=== PATIENT | male | born 1935 | race African-American/Black ===

== ENCOUNTER 2016-08-09 09:36 | Inpatient (IN) | payer MEDICARE ==
[~2016-08-09] VITALS: Ht 180.3 cm; Wt 70.4 kg
[2016-08-09] MEDS ORDERED: ASPIRIN 81MG TABLET PO ONE (11:00)
[2016-08-09 11:23] LABS: BASOPHILS % 0.9 % (0.0-2.0); EOSINOPHILS % 5.9 % (0.0-5.0); HEMATOCRIT. 36.6 % (42.0-52.0); HEMOGLOBIN. 12.2 g/dL (14.0-18.0); MEAN CORPUSCULAR HEMOGLOBIN 29.3 pg (28.0-32.0); MEAN CORPUSCULAR HGB CONC 33.4 g/dL (31.0-37.0); MEAN CORPUSCULAR VOLUME 87.6 fL (80.0-94.0); MEAN PLATELET VOLUME 9.3 fl (7.4-10.4); MONOCYTES % 14.9 % (2.0-8.0); NEUTROPHILS % 56.3 % (40.0-76.0); PLATELET 120 x1000/uL (130-400); RED BLOOD CELL COUNT 4.18 mill/uL (4.7-6.1); RED CELL DISTRIBUTION WIDTH 14.9 % (11.6-14.6); WHITE BLOOD COUNT 3.5 x1000/uL (4.5-11.0)
[2016-08-09 11:25] LABS: BG BASE EXCESS 4.2 mmol/L (-2.0-2.0); BG CARBOXYHEMOGLOBIN 0.5 % (0.5-1.5); BG DEOXYHEMOGLOBIN 2.7 % (0.0-5.0); BG FRACTION INSPIRED OXYGEN 21; BG HCO3 ACT 28.5 mmol/L (22.0-26.0); BG METHEMOGLOBIN 0.4 % (0.0-1.5); BG OXYGEN SATURATION 97.3 % (92.0-98.5); BG OXYHEMOGLOBIN 96.4 % (94.0-97.0); BG PCO2 41.4 mmHg (35.0-45.0); BG PH 7.456 (7.350-7.450); BG PO2 91.2 mmHg (75.0-100.0); BG SAMPLE SITE RIGHT BRACHIAL; BG TOTAL HEMOGLOBIN 12.5 g/dL (12.0-18.0); BG VENT MODE ROOM AIR
[2016-08-09 11:31] LABS: D-DIMER 1.97 mg/L FEU (<0.50); INR 1.2; PROTHROMBIN TIME 12.2 sec
[2016-08-09 11:38] LABS: ALANINE AMINOTRANSFERASE 15 IU/L (13-61); ALBUMIN 2.7 g/dL (3.4-5.0); ANION GAP 8; CALCIUM 8.3 mg/dL (8.5-10.1); CARBON DIOXIDE 32 mEq/L (21-32); CHLORIDE 100 mEq/L (98-107); ETHANOL BLOOD < 10 mg/dL; INDEX HEMOLYSI 1 (1-3); INDEX ICTERIC 1 (1-4); INDEX LIPEMIC 1 (1-3); NT PRO B-TYPE NATRIURETIC PEP 192 pg/mL (5-125); TROPONIN I < 0.02 ng/mL (0.00-0.04); UREA NITROGEN BLOOD 12 mg/dL (7-21); eGFR > 60 mL/min (>60)
[2016-08-09 13:54] LABS: *AMPHETAMINES SCREEN URINE NEGATIVE (NEGATIVE); *BARBITURATES SCREEN URINE NEGATIVE (NEGATIVE); *BENZODIAZEPINES SCREEN URINE NEGATIVE (NEGATIVE); *COCAINE SCREEN URINE NEGATIVE (NEGATIVE); CANNABINOID URINE SCREEN NEGATIVE (NEGATIVE); ECSTASY MDMA SCREEN URINE NEGATIVE (NEGATIVE); METHADONE URINE SCREEN NEGATIVE (NEGATIVE); OPIATES URINE SCREEN NEGATIVE (NEGATIVE); PHENCYCLIDINE URINE SCREEN NEGATIVE (NEGATIVE)
[2016-08-09] MEDS ORDERED: DIPHENHYDRAMINE 50MG/ML VIAL IV PRN (16:30)
[2016-08-09] MEDS ORDERED: NITROGLYCERIN 0.4MG TABLET SL SL PRN (16:30)
[2016-08-09] MEDS ORDERED: IPRATROPIUM/ALBUTEROL 0.5-3(2.5)MG/3ML NEB INH PRN (16:30)
[2016-08-09] MEDS ORDERED: TRAMADOL 50MG TABLET PO PRN (16:30)
[2016-08-09] MEDS ORDERED: CLONIDINE 0.1MG TABLET PO PRN (16:30)
[2016-08-09] MEDS ORDERED: ACETAMINOPHEN 325MG TABLET PO PRN (16:30)
[2016-08-09] MEDS ORDERED: KETOROLAC 15MG/ML VIAL IV PRN (16:30)
[2016-08-09] MEDS ORDERED: ONDANSETRON HCL 4MG/2ML VIAL IV PRN (16:30)
[2016-08-09] MEDS ORDERED: DOCUSATE SODIUM 100MG CAPSULE PO PRN (16:30)
[2016-08-09] MEDS ORDERED: MAGNESIUM/ALUMINUM HYDROXIDE/SIMETHICONE 30ML UDC PO PRN (16:30)
[2016-08-09] MEDS ORDERED: GUAIFENESIN 200MG/10ML SUGAR FREE UDC PO PRN (16:30)
[2016-08-09 18:55] LABS: INDEX HEMOLYSI 1 (1-3); INDEX ICTERIC 1 (1-4); INDEX LIPEMIC 1 (1-3); IRON 70 ug/dL (50-175); TOTAL IRON BINDING CAPACITY 272 ug/dL (250-450)
[2016-08-09 19:15] LABS: INDEX HEMOLYSI 1 (1-3)
[2016-08-09 19:30] LABS: VITAMIN B12 SERUM 400 pg/mL (211-911)
[2016-08-09 19:49] LABS: FOLIC ACID (FOLATE) SERUM > 20.00 ng/mL (>5.38)
[2016-08-09] MEDS ORDERED: ZOLPIDEM TARTRATE 5MG TABLET PO PRN (20:00)
[2016-08-09] MEDS ORDERED: NA PHOS,M-B/NA PHOS,DI-BA ENEMA 118ML PR PRN (20:00)
[2016-08-09 23:17] LABS: CREATINE KINASE 176 IU/L (39-308); INDEX HEMOLYSI 1 (1-3); TROPONIN I < 0.02 ng/mL (0.00-0.04)
[2016-08-10] VITALS (9 sets, daily range): BP systolic 121–174; BP diastolic 67–85
[2016-08-10] MEDS ORDERED: METO50TA5 PO (02:22)
[2016-08-10] MEDS ORDERED: ASPI-1035 PO (02:22)
[2016-08-10] MEDS: METOPROLOL TARTRATE 25MG TABLET PO SCH ×2 (02:54→08:19)
[2016-08-10 08:53] LABS: CREATINE KINASE 176 IU/L (39-308); CREATINE KINASE MB FRACTION 2.2 ng/mL (0.5-3.6); INDEX HEMOLYSI 1 (1-3); TROPONIN I < 0.02 ng/mL (0.00-0.04)
[2016-08-10] MEDS ORDERED: ASPIRIN 325MG EC TABLET PO SCH (09:00)
[2016-08-10] MEDS ORDERED: PANTOPRAZOLE SODIUM 40 MG/VIAL IV SCH (09:00)
[2016-08-10] MEDS ORDERED: ENOXAPARIN 40MG/0.4ML SYR SUBCUT SCH (09:00)
== END 2016-08-10 12:45 | disposition home or self-care (01) | DRG 308 ==
LOC: ER 09:48 → 5EST 15:38
PROVIDERS: ADMIT Internal Medicine; ATTEND Internal Medicine
DX: R00.2 Palpitations (principal); E43 Unspecified severe protein-calorie malnutrition; D63.8 Anemia in other chronic diseases classified elsewhere; I10 Essential (primary) hypertension; Z79.82 Long term (current) use of aspirin; Z86.73 Personal history of transient ischemic attack (TIA), and cerebral infarction without residual deficits
CPT/HCPCS: 36415; 36600; 71010; 80053; 80061; 80305; 82375; 82550; 82553; 82607; 82746; 82805; 83036; 83540; 83550; 83880; 84132; 84484; 85025; 85379; 85610; 93005; 93970; 99285; C9113; G0482; J1650

== ENCOUNTER 2016-11-14 14:05 | Inpatient (IN) | payer MEDICARE, OTHER ==
[~2016-11-14] VITALS: Ht 175.3 cm; Wt 72.6 kg
[~2016-11-14 14:05] MED LIST: ASPI-1159 PO
[2016-11-14 14:47] LABS: BASOPHILS % 0.7 % (0.0-2.0); EOSINOPHILS % 0.9 % (0.0-5.0); HEMATOCRIT. 33.8 % (42.0-52.0); HEMOGLOBIN. 11.3 g/dL (14.0-18.0); LYMPHOCYTES % 12.1 % (20.0-50.0); MEAN CORPUSCULAR HEMOGLOBIN 29.1 pg (28.0-32.0); MEAN CORPUSCULAR VOLUME 86.9 fL (80.0-94.0); MEAN PLATELET VOLUME 9.3 fl (7.4-10.4); MONOCYTES % 11.9 % (2.0-8.0); NEUTROPHILS % 74.4 % (40.0-76.0); PLATELET 111 x1000/uL (130-400); RED BLOOD CELL COUNT 3.89 mill/uL (4.7-6.1); RED CELL DISTRIBUTION WIDTH 14.9 % (11.6-14.6)
[2016-11-14 14:53] LABS: INR 1.2; PARTIAL THROMBOPLASTIN TIME 23.3 sec (24.0-34.0); PROTHROMBIN TIME 12.6 sec
[2016-11-14 14:57] LABS: CARBON DIOXIDE 30 mEq/L (21-32); CHLORIDE 98 mEq/L (98-107)
[2016-11-14 15:01] LABS: TROPONIN I < 0.02 ng/mL (0.00-0.04)
[2016-11-15] VITALS: BP 155/86
[2016-11-15] MEDS ORDERED: LOSA25TA12 PO (00:30)
[2016-11-15] MEDS ORDERED: NITR0.4T3 SL (00:30)
[2016-11-15] MEDS ORDERED: HYDROMORPHONE HCL/PF 2MG/ML CPJ IV PRN (00:45)
[2016-11-15] MEDS ORDERED: NITROGLYCERIN 0.4MG TABLET SL SL PRN (00:45)
[2016-11-15] MEDS ORDERED: ACETAMINOPHEN 325MG TABLET PO PRN (00:45)
[2016-11-15] MEDS ORDERED: ONDANSETRON HCL 4MG/2ML VIAL IV PRN (00:45)
[2016-11-15] MEDS ORDERED: MECLIZINE 25MG TABLET PO PRN (00:45)
[2016-11-15 04:00] VITALS: BP 148/84
[2016-11-15] MEDS: OMEPRAZOLE 20MG CAPSULE EXTENDED RELEASE PO SCH (06:55)
[2016-11-15 07:55] LABS: BASOPHILS % 0.5 % (0.0-2.0); EOSINOPHILS % 4.6 % (0.0-5.0); HEMATOCRIT. 38.4 % (42.0-52.0); LYMPHOCYTES % 32.8 % (20.0-50.0); MEAN CORPUSCULAR HEMOGLOBIN 29.3 pg (28.0-32.0); MEAN CORPUSCULAR VOLUME 86.7 fL (80.0-94.0); MEAN PLATELET VOLUME 9.8 fl (7.4-10.4); MONOCYTES % 14.2 % (2.0-8.0); NEUTROPHILS % 47.9 % (40.0-76.0); PLATELET 119 x1000/uL (130-400); RED BLOOD CELL COUNT 4.43 mill/uL (4.7-6.1); RED CELL DISTRIBUTION WIDTH 15.1 % (11.6-14.6)
[2016-11-15 08:00] VITALS: BP 180/86
[2016-11-15 08:03] LABS: CARBON DIOXIDE 30 mEq/L (21-32); CHLORIDE 100 mEq/L (98-107); TROPONIN I < 0.02 ng/mL (0.00-0.04)
[2016-11-15] MEDS ORDERED: DOCU-138 PO (08:04)
[2016-11-15] MEDS: LOSARTAN POTASSIUM 25 MG TABLET PO SCH (08:17)
[2016-11-15] MEDS: ASPIRIN 81MG EC TABLET PO SCH (08:17)
[2016-11-15] MEDS: ENOXAPARIN 40MG/0.4ML SYR SUBCUT SCH (08:18)
[2016-11-15] MEDS ORDERED: FUROSEMIDE 40MG/4ML VIAL IVP SCH (09:00)
[2016-11-15] MEDS: SODIUM CHLORIDE 0.45% 1,000 ML IV SCH ×2 (09:38→21:31)
[2016-11-15] MEDS ORDERED: REGADENOSON 0.4 MG/5 ML IV SCH (09:45)
[2016-11-15] MEDS ORDERED: REGADENOSON 0.4 MG/5 ML IV ONE (11:34)
[2016-11-15 12:00] VITALS: BP 151/88
[2016-11-15 16:00] VITALS: BP 150/80
[2016-11-15 20:00] VITALS: BP 167/98
[2016-11-15] MEDS: DOCUSATE SODIUM 250MG CAPSULE PO SCH (21:31)
[2016-11-15] MEDS: CLONIDINE 0.1MG TABLET PO PRN (22:39)
[2016-11-16] VITALS: BP 150/97
[2016-11-16 04:00] VITALS: BP 113/73
[2016-11-16] MEDS: OMEPRAZOLE 20MG CAPSULE EXTENDED RELEASE PO SCH (07:02)
[2016-11-16 08:00] VITALS: BP 145/86
[2016-11-16] MEDS: ASPIRIN 81MG EC TABLET PO SCH (09:16)
[2016-11-16] MEDS: LOSARTAN POTASSIUM 25 MG TABLET PO SCH (09:16)
[2016-11-16] MEDS: ENOXAPARIN 40MG/0.4ML SYR SUBCUT SCH (09:16)
[2016-11-16] MEDS: SODIUM CHLORIDE 0.45% 1,000 ML IV SCH (11:21)
[2016-11-16 12:00] VITALS: BP 116/75
[2016-11-16 16:00] VITALS: BP 118/79
[2016-11-16 20:00] VITALS: BP 159/98
[2016-11-16] MEDS: DOCUSATE SODIUM 250MG CAPSULE PO SCH (20:39)
[2016-11-16] MEDS: CLONIDINE 0.1MG TABLET PO PRN (23:49)
[2016-11-17] VITALS (7 sets, daily range): BP systolic 125–164; BP diastolic 81–96
[2016-11-17] MEDS: SODIUM CHLORIDE 0.45% 1,000 ML IV SCH ×2 (04:47→15:46)
[2016-11-17] MEDS ORDERED: FAMOTIDINE 20MG TABLET PO SCH (09:00)
[2016-11-17] MEDS: LOSARTAN POTASSIUM 25 MG TABLET PO SCH (09:06)
[2016-11-17] MEDS: ASPIRIN 81MG EC TABLET PO SCH (09:06)
[2016-11-17] MEDS: ENOXAPARIN 40MG/0.4ML SYR SUBCUT SCH (09:07)
== END 2016-11-17 16:50 | disposition home or self-care (01) | DRG 205 ==
LOC: ER 14:37 → 5WST 21:30 → EDBEDREQ 21:35 → EDBEDREQTM 21:35 → ENRESERV 21:44
PROVIDERS: ADMIT Internal Medicine; ATTEND Internal Medicine
DX: M94.0 Chondrocostal junction syndrome [Tietze] (principal); E43 Unspecified severe protein-calorie malnutrition; E87.1 Hypo-osmolality and hyponatremia; K21.9 Gastro-esophageal reflux disease without esophagitis; D64.9 Anemia, unspecified; E78.5 Hyperlipidemia, unspecified; E83.51 Hypocalcemia; I11.0 Hypertensive heart disease with heart failure; I25.10 Atherosclerotic heart disease of native coronary artery without angina pectoris; I50.9 Heart failure, unspecified; R73.03 Prediabetes; Z79.82 Long term (current) use of aspirin; Z68.23 Body mass index [BMI] 23.0-23.9, adult; Z88.8 Allergy status to other drugs, medicaments and biological substances; Z88.1 Allergy status to other antibiotic agents; Z79.899 Other long term (current) drug therapy; Z82.3 Family history of stroke
CPT/HCPCS: 36415; 71010; 78452; 80048; 80053; 83036; 83880; 84484; 85025; 85610; 85651; 85730; 93005; 93017; 93306; 93970; 99285; A9500; J1650; J1940; J2785; J8597

== ENCOUNTER 2017-08-09 09:43 | Inpatient (IN) | payer MEDICARE, OTHER ==
[~2017-08-09] VITALS: Ht 175.3 cm; Wt 70.3 kg
[~2017-08-09 09:43] MED LIST changes: +DOCU-138 PO; +LOSA25TA12 PO; +NITR0.4T49 SL
[2017-08-09] MEDS ORDERED: SODIUM CHLORIDE 0.9% 500 ML IV ONE (09:50)
[2017-08-09 10:32] LABS: HEMATOCRIT. 36.8 % (42.0-52.0); HEMOGLOBIN. 12.5 g/dL (14.0-18.0); MEAN CORPUSCULAR HEMOGLOBIN 29.4 pg (28.0-32.0); MEAN PLATELET VOLUME 8.6 fl (7.4-10.4); PLATELET 137 x1000/uL (130-400); RED BLOOD CELL COUNT 4.23 mill/uL (4.7-6.1); RED CELL DISTRIBUTION WIDTH 14.5 % (11.6-14.6)
[2017-08-09 10:40] LABS: INR 1.1; PARTIAL THROMBOPLASTIN TIME 23.6 sec (23.4-31.0); PROTHROMBIN TIME 11.9 sec (9.4-11.6)
[2017-08-09 10:43] LABS: CHLORIDE 83 mEq/L (98-107)
[2017-08-09] MEDS ORDERED: ASPIRIN 325MG EC TABLET PO ONE (10:45)
[2017-08-09 10:51] LABS: ETHANOL BLOOD < 10 mg/dL; LDL CHOLESTEROL 67 mg/dL (5-100)
[2017-08-09 10:55] LABS: AMMONIA < 25 uMol/L (<32); PLATELET ESTIMATE NORMAL
[2017-08-09 11:00] LABS: CREATINE KINASE 4518 IU/L (39-308)
[2017-08-09] MEDS ORDERED: FUROSEMIDE 40MG/4ML VIAL IVP ONE (11:15)
[2017-08-09 12:10] LABS: CLARITY URINE CLEAR (CLEAR); COLOR URINE YELLOW (YELLOW); KETONES URINE NEGATIVE (NEGATIVE); LEUKOCYTE ESTERASE URINE NEGATIVE (NEGATIVE); NITRITE URINE NEGATIVE (NEGATIVE); OCCULT BLOOD URINE 3+ (NEGATIVE); PH URINE 5.5 (4.5-8.0); PROTEIN URINE 2+ (NEGATIVE); SPECIFIC GRAVITY URINE 1.017 (1.005-1.030); UROBILINOGEN URINE 0.2 E.U./dL (0.2-1.0)
[2017-08-09 12:46] LABS: *AMPHETAMINES SCREEN URINE NEGATIVE (NEGATIVE); *BARBITURATES SCREEN URINE NEGATIVE (NEGATIVE); *BENZODIAZEPINES SCREEN URINE NEGATIVE (NEGATIVE); *COCAINE SCREEN URINE NEGATIVE (NEGATIVE); CANNABINOID URINE SCREEN NEGATIVE (NEGATIVE); METHADONE URINE SCREEN NEGATIVE (NEGATIVE); OPIATES URINE SCREEN NEGATIVE (NEGATIVE); PHENCYCLIDINE URINE SCREEN NEGATIVE (NEGATIVE)
[2017-08-09] MEDS ORDERED: ACETAMINOPHEN 325MG TABLET PO PRN (16:30)
[2017-08-09] MEDS ORDERED: IPRATROPIUM/ALBUTEROL 0.5-3(2.5)MG/3ML NEB INH PRN (16:30)
[2017-08-09] MEDS ORDERED: MAGNESIUM/ALUMINUM HYDROXIDE/SIMETHICONE 30ML UDC PO PRN (16:30)
[2017-08-09] MEDS ORDERED: GUAIFENESIN 200MG/10ML SUGAR FREE UDC PO PRN (16:30)
[2017-08-09] MEDS ORDERED: ONDANSETRON HCL 4MG/2ML VIAL IV PRN (16:30)
[2017-08-09] MEDS ORDERED: ACETAMINOPHEN 650MG/20.3ML UDC GT PRN (16:30)
[2017-08-09] MEDS ORDERED: DIPHENHYDRAMINE 50MG/ML VIAL IV PRN (16:30)
[2017-08-09] MEDS ORDERED: ACETAMINOPHEN 650MG SUPP PR PRN (16:30)
[2017-08-09] MEDS ORDERED: CLONIDINE 0.1MG TABLET PO PRN (16:30)
[2017-08-09] MEDS ORDERED: HYDROCODONE/ACETAMINOPHEN 5/325MG TABLET PO PRN (16:30)
[2017-08-09] MEDS ORDERED: MORPHINE SULFATE 4 MG/ML CPJ (NOT FOR IM USE) IV PRN (17:00)
[2017-08-09 17:26] LABS: HEMATOCRIT. 33.9 % (42.0-52.0); HEMOGLOBIN. 11.6 g/dL (14.0-18.0); MEAN CORPUSCULAR HEMOGLOBIN 29.6 pg (28.0-32.0); MEAN CORPUSCULAR VOLUME 86.8 fL (80.0-94.0); PLATELET 126 x1000/uL (130-400); RED CELL DISTRIBUTION WIDTH 14.4 % (11.6-14.6)
[2017-08-09 17:28] LABS: CHLORIDE 87 mEq/L (98-107)
[2017-08-09 18:24] LABS: PLATELET ESTIMATE SLIGHTLY DECREASED
[2017-08-09 18:51] LABS: T4 FREE 1.32 ng/dL (0.76-1.46)
[2017-08-09] MEDS ORDERED: NA PHOS,M-B/NA PHOS,DI-BA ENEMA 118ML PR PRN (21:00)
[2017-08-09 22:00] VITALS: BP 159/81
[2017-08-09 23:00] VITALS: BP 159/81
[2017-08-09] MEDS ORDERED: SODIUM CHLORIDE 0.9% 1,000 ML IV NR (23:00)
[2017-08-09] MEDS: SODIUM CHLORIDE 0.9% INJ 3ML FLUSH IVF SCH (23:10)
[2017-08-09 23:54] LABS: CHLORIDE 88 mEq/L (98-107)
[2017-08-10] VITALS (8 sets, daily range): BP systolic 103–142; BP diastolic 62–75
[2017-08-10] MEDS ORDERED: CEFTRIAXONE 1 G PREMIX 50 ML IV SCH
[2017-08-10] MEDS: SODIUM CHLORIDE 0.9% INJ 3ML FLUSH IVF SCH ×2 (06:00→15:27)
[2017-08-10 08:06] LABS: HEMATOCRIT. 33.2 % (42.0-52.0); HEMOGLOBIN. 11.3 g/dL (14.0-18.0); MEAN CORPUSCULAR HEMOGLOBIN 29.4 pg (28.0-32.0); MEAN CORPUSCULAR VOLUME 86.4 fL (80.0-94.0); MEAN PLATELET VOLUME 9.4 fl (7.4-10.4); PLATELET 116 x1000/uL (130-400); RED BLOOD CELL COUNT 3.85 mill/uL (4.7-6.1); RED CELL DISTRIBUTION WIDTH 14.4 % (11.6-14.6)
[2017-08-10 08:25] LABS: CHLORIDE 91 mEq/L (98-107)
[2017-08-10 08:47] LABS: HDL CHOLESTEROL 74 mg/dL (40-59); LDL CHOLESTEROL 50 mg/dL (5-100); PHOSPHORUS 2.5 mg/dL (2.5-4.9)
[2017-08-10 08:52] LABS: TROPONIN I 0.77 ng/mL (0.00-0.04)
[2017-08-10] MEDS: ENOXAPARIN 40MG/0.4ML SYR SUBCUT SCH (09:46)
[2017-08-10 12:07] LABS: PLATELET ESTIMATE DECREASED
[2017-08-10] MEDS ORDERED: ASPIRIN 81MG EC TABLET PO NR (14:30)
[2017-08-10] MEDS ORDERED: CLOPIDOGREL 75MG TABLET PO NR (14:30)
[2017-08-10] MEDS: CEFTRIAXONE 1 G PREMIX 50 ML IV SCH (21:30)
[2017-08-10 23:51] LABS: CLARITY URINE CLEAR (CLEAR); COLOR URINE YELLOW (YELLOW); KETONES URINE TRACE (NEGATIVE); LEUKOCYTE ESTERASE URINE NEGATIVE (NEGATIVE); NITRITE URINE NEGATIVE (NEGATIVE); OCCULT BLOOD URINE 2+ (NEGATIVE); PROTEIN URINE 1+ (NEGATIVE); SPECIFIC GRAVITY URINE 1.021 (1.005-1.030); UROBILINOGEN URINE 0.2 E.U./dL (0.2-1.0)
[2017-08-11] VITALS (12 sets, daily range): BP systolic 100–139; BP diastolic 53–76
[2017-08-11 06:36] LABS: HEMATOCRIT. 29.5 % (42.0-52.0); HEMOGLOBIN. 10.2 g/dL (14.0-18.0); MEAN CORPUSCULAR HEMOGLOBIN 30.4 pg (28.0-32.0); MEAN CORPUSCULAR VOLUME 87.4 fL (80.0-94.0); MEAN PLATELET VOLUME 9.5 fl (7.4-10.4); PLATELET 101 x1000/uL (130-400); RED BLOOD CELL COUNT 3.37 mill/uL (4.7-6.1)
[2017-08-11 06:55] LABS: CHLORIDE 96 mEq/L (98-107)
[2017-08-11 07:10] LABS: TROPONIN I 0.33 ng/mL (0.00-0.04)
[2017-08-11 07:25] LABS: CREATINE KINASE 4634 IU/L (39-308)
[2017-08-11] MEDS: ASPIRIN 81MG EC TABLET PO SCH (10:04)
[2017-08-11] MEDS: CLOPIDOGREL 75MG TABLET PO SCH (10:04)
[2017-08-11] MEDS: ENOXAPARIN 40MG/0.4ML SYR SUBCUT SCH (10:05)
[2017-08-11 18:01] LABS: PLATELET ESTIMATE DECREASED
[2017-08-11] MEDS: CEFTRIAXONE 1 G PREMIX 50 ML IV SCH (21:11)
[2017-08-11] MEDS: SODIUM CHLORIDE 0.9% INJ 3ML FLUSH IVF SCH (21:15)
[2017-08-12] VITALS (12 sets, daily range): BP systolic 97–142; BP diastolic 59–76
[2017-08-12] MEDS: IPRATROPIUM/ALBUTEROL 0.5-3(2.5)MG/3ML NEB INH SCH ×4 (01:40→20:38)
[2017-08-12] MEDS: SODIUM CHLORIDE 0.9% INJ 3ML FLUSH IVF SCH ×3 (07:10→21:38)
[2017-08-12 07:17] LABS: BASOPHILS % 0.4 % (0.0-2.0); EOSINOPHILS % 2.2 % (0.0-5.0); HEMATOCRIT. 30.6 % (42.0-52.0); HEMOGLOBIN. 10.4 g/dL (14.0-18.0); LYMPHOCYTES % 11.7 % (20.0-50.0); MEAN CORPUSCULAR HEMOGLOBIN 29.7 pg (28.0-32.0); MEAN CORPUSCULAR VOLUME 87.7 fL (80.0-94.0); MEAN PLATELET VOLUME 9.2 fl (7.4-10.4); MONOCYTES % 12.9 % (2.0-8.0); NEUTROPHILS % 72.8 % (40.0-76.0); PLATELET 103 x1000/uL (130-400); RED BLOOD CELL COUNT 3.49 mill/uL (4.7-6.1); RED CELL DISTRIBUTION WIDTH 14.2 % (11.6-14.6)
[2017-08-12 07:42] LABS: CHLORIDE 98 mEq/L (98-107)
[2017-08-12 08:02] LABS: TROPONIN I 0.17 ng/mL (0.00-0.04)
[2017-08-12] MEDS: ENOXAPARIN 40MG/0.4ML SYR SUBCUT SCH (08:20)
[2017-08-12] MEDS: ASPIRIN 81MG EC TABLET PO SCH (08:20)
[2017-08-12] MEDS: CLOPIDOGREL 75MG TABLET PO SCH (08:20)
[2017-08-12] MEDS: DOCUSATE SODIUM 100MG CAPSULE PO PRN (12:54)
[2017-08-12] MEDS: CEFTRIAXONE 1 G PREMIX 50 ML IV SCH (21:38)
[2017-08-13] VITALS (11 sets, daily range): BP systolic 110–150; BP diastolic 61–88
[2017-08-13] MEDS: IPRATROPIUM/ALBUTEROL 0.5-3(2.5)MG/3ML NEB INH SCH ×3 (01:20→13:44)
[2017-08-13] MEDS: DOCUSATE SODIUM 100MG CAPSULE PO PRN ×2 (01:28→14:54)
[2017-08-13] MEDS: SODIUM CHLORIDE 0.9% INJ 3ML FLUSH IVF SCH ×2 (06:13→14:02)
[2017-08-13 07:45] LABS: BASOPHILS % 0.2 % (0.0-2.0); EOSINOPHILS % 1.1 % (0.0-5.0); HEMATOCRIT. 29.1 % (42.0-52.0); LYMPHOCYTES % 7.3 % (20.0-50.0); MEAN CORPUSCULAR HEMOGLOBIN 30.2 pg (28.0-32.0); MEAN CORPUSCULAR VOLUME 87.5 fL (80.0-94.0); MEAN PLATELET VOLUME 8.6 fl (7.4-10.4); MONOCYTES % 12.9 % (2.0-8.0); NEUTROPHILS % 78.5 % (40.0-76.0); PLATELET 124 x1000/uL (130-400); RED BLOOD CELL COUNT 3.33 mill/uL (4.7-6.1); RED CELL DISTRIBUTION WIDTH 14.2 % (11.6-14.6)
[2017-08-13] MEDS: ENOXAPARIN 40MG/0.4ML SYR SUBCUT SCH (08:20)
[2017-08-13] MEDS: ASPIRIN 81MG EC TABLET PO SCH (08:20)
[2017-08-13] MEDS: CLOPIDOGREL 75MG TABLET PO SCH (08:20)
[2017-08-13 08:39] LABS: CHLORIDE 98 mEq/L (98-107)
[2017-08-13 09:15] LABS: CREATINE KINASE 3010 IU/L (39-308)
[2017-08-13] MEDS ORDERED: LACTULOSE 20G/30ML UDC PO SCH (15:45)
[2017-08-13 18:02] LABS: VITAMIN B12 SERUM 577 pg/mL (211-911)
[2017-08-13] MEDS ORDERED: IPRA3AMP9 HHN ×2 (20:37)
[2017-08-13] MEDS ORDERED: DOCU-138 PO (20:37)
[2017-08-13] MEDS ORDERED: MIRT15TA PO (20:37)
[2017-08-13] MEDS ORDERED: AC10R PR (20:37)
[2017-08-13] MEDS ORDERED: CLON0.1T14 PO (20:37)
[2017-08-13] MEDS ORDERED: MAGN30OR PO (20:37)
[2017-08-13] MEDS ORDERED: MORP4CAR IV (20:37)
[2017-08-13] MEDS ORDERED: NORCO 5/325 PO (20:37)
[2017-08-13] MEDS ORDERED: ACET-2178 PO ×2 (20:37)
[2017-08-13] MEDS ORDERED: LOV40 SQ (20:37)
[2017-08-13] MEDS ORDERED: ASPI-867 PO (20:37)
[2017-08-13] MEDS ORDERED: ROBITUSSIN PO (20:37)
[2017-08-13] MEDS ORDERED: BENADRYL IV (20:37)
[2017-08-13] MEDS ORDERED: ZOFRAN IV (20:37)
[2017-08-13] MEDS ORDERED: FLEET ENEMA PR (20:37)
[2017-08-13] MEDS ORDERED: CLOP75TA16 PO (20:37)
[2017-08-13] MEDS ORDERED: MIRTAZAPINE 15MG TABLET PO SCH (21:00)
== END 2017-08-13 19:00 | DRG 64 ==
LOC: ER 09:56 → 5EST 11:13 → ENRESERV 13:32 → CANRESERV 13:32 → EDBEDREQ 17:35 → EDBEDREQSVC 17:35 → ENRESERV 19:40 → EDBEDREQSVC 20:04 → EDBEDREQ 20:39 → EDBEDREQTM 20:39
PROVIDERS: ADMIT Family Medicine; ATTEND Family Medicine
DX: I63.9 Cerebral infarction, unspecified (principal); I21.4 Non-ST elevation (NSTEMI) myocardial infarction; D69.6 Thrombocytopenia, unspecified; E87.1 Hypo-osmolality and hyponatremia; I08.1 Rheumatic disorders of both mitral and tricuspid valves; I27.20 Pulmonary hypertension, unspecified; M62.82 Rhabdomyolysis; D63.8 Anemia in other chronic diseases classified elsewhere; E86.0 Dehydration; I25.10 Atherosclerotic heart disease of native coronary artery without angina pectoris; K21.9 Gastro-esophageal reflux disease without esophagitis; L89.90 Pressure ulcer of unspecified site, unspecified stage; I10 Essential (primary) hypertension; M48.00 Spinal stenosis, site unspecified; R29.6 Repeated falls; Z79.02 Long term (current) use of antithrombotics/antiplatelets; Z79.82 Long term (current) use of aspirin; Z85.46 Personal history of malignant neoplasm of prostate; Z86.718 Personal history of other venous thrombosis and embolism; Z88.8 Allergy status to other drugs, medicaments and biological substances; Z79.899 Other long term (current) drug therapy
CPT/HCPCS: 36415; 51702; 70450; 70551; 71045; 72141; 72146; 72148; 72170; 78306; 80048; 80053; 80061; 80305; 81003; 82140; 82533; 82550; 82570; 82607; 82962; 83036; 83690; 83721; 83735; 83880; 83930; 83935; 84100; 84153; 84156; 84300; 84439; 84443; 84484; 84550; 85025; 85610; 85730; 86850; 86900; 93005; 93306; 93880; 93970; 94640; 96361; 96374; 97110; 97116; 97162; 97167; 97530; 97535; 99291; A9503; G0482; J0696; J1650; J1940; J7030; J7040; J7620; A4315

== ENCOUNTER 2017-08-13 19:00 | Inpatient (IN) | payer MEDICARE, OTHER ==
[~2017-08-13] VITALS: Ht 175.3 cm; Wt 70.3 kg
[2017-08-13 20:00] VITALS: BP 112/56
[2017-08-13] MEDS ORDERED: CLONIDINE 0.1MG TABLET PO PRN (20:15)
[2017-08-13] MEDS ORDERED: GUAIFENESIN 200MG/10ML SUGAR FREE UDC PO PRN (20:15)
[2017-08-13] MEDS ORDERED: NITROGLYCERIN 0.4MG TABLET SL SL PRN (20:15)
[2017-08-13] MEDS ORDERED: ACETAMINOPHEN 325MG TABLET PO PRN (20:15)
[2017-08-13] MEDS ORDERED: DOCUSATE SODIUM 100MG CAPSULE PO PRN (20:15)
[2017-08-13] MEDS ORDERED: DIPHENHYDRAMINE 50MG/ML VIAL IV PRN (20:15)
[2017-08-13] MEDS ORDERED: HYDROCODONE/ACETAMINOPHEN 10/325MG TABLET PO PRN (20:15)
[2017-08-13] MEDS ORDERED: ACETAMINOPHEN 650MG SUPP PR PRN (20:15)
[2017-08-13] MEDS ORDERED: MAGNESIUM/ALUMINUM HYDROXIDE/SIMETHICONE 30ML UDC PO PRN (20:15)
[2017-08-13] MEDS ORDERED: ONDANSETRON HCL 4MG/2ML VIAL IV PRN (20:15)
[2017-08-13] MEDS ORDERED: NA PHOS,M-B/NA PHOS,DI-BA ENEMA 118ML PR PRN (20:15)
[2017-08-13] MEDS ORDERED: HYDROCODONE/ACETAMINOPHEN 5/325MG TABLET PO PRN (20:15)
[2017-08-13] MEDS ORDERED: ASPI-867 PO (20:37)
[2017-08-13] MEDS ORDERED: BENADRYL IV (20:37)
[2017-08-13] MEDS ORDERED: IPRA3AMP9 HHN ×2 (20:37)
[2017-08-13] MEDS ORDERED: FLEET ENEMA PR (20:37)
[2017-08-13] MEDS ORDERED: CLOP75TA16 PO (20:37)
[2017-08-13] MEDS ORDERED: MORP4CAR IV (20:37)
[2017-08-13] MEDS ORDERED: DOCU-138 PO (20:37)
[2017-08-13] MEDS ORDERED: ACET-2178 PO ×2 (20:37)
[2017-08-13] MEDS ORDERED: MIRT15TA PO (20:37)
[2017-08-13] MEDS ORDERED: AC10R PR (20:37)
[2017-08-13] MEDS ORDERED: CLON0.1T14 PO (20:37)
[2017-08-13] MEDS ORDERED: LOV40 SQ (20:37)
[2017-08-13] MEDS ORDERED: ZOFRAN IV (20:37)
[2017-08-13] MEDS ORDERED: MAGN30OR PO (20:37)
[2017-08-13] MEDS ORDERED: NORCO 5/325 PO (20:37)
[2017-08-13] MEDS ORDERED: ROBITUSSIN PO (20:37)
[2017-08-13] MEDS: SODIUM CHLORIDE 0.9% INJ 3ML FLUSH IVF SCH (22:12)
[2017-08-14] MEDS: SODIUM CHLORIDE 0.9% INJ 3ML FLUSH IVF SCH ×3 (06:32→21:44)
[2017-08-14 07:15] LABS: HEMATOCRIT. 30.4 % (42.0-52.0); HEMOGLOBIN. 10.4 g/dL (14.0-18.0); MEAN CORPUSCULAR HEMOGLOBIN 30.4 pg (28.0-32.0); MEAN CORPUSCULAR VOLUME 88.4 fL (80.0-94.0); MEAN PLATELET VOLUME 8.5 fl (7.4-10.4); PLATELET 136 x1000/uL (130-400); RED BLOOD CELL COUNT 3.44 mill/uL (4.7-6.1); RED CELL DISTRIBUTION WIDTH 14.1 % (11.6-14.6)
[2017-08-14 07:44] LABS: CHLORIDE 100 mEq/L (98-107)
[2017-08-14 08:10] LABS: HDL CHOLESTEROL 56 mg/dL (40-59); LDL CHOLESTEROL 68 mg/dL (5-100)
[2017-08-14 08:19] VITALS: BP 149/78
[2017-08-14] MEDS: DOCUSATE SODIUM 100MG CAPSULE PO SCH (08:21)
[2017-08-14] MEDS: LOSARTAN POTASSIUM 25 MG TABLET PO SCH (08:22)
[2017-08-14] MEDS: ASPIRIN 81MG EC TABLET PO SCH (08:22)
[2017-08-14] MEDS: ENOXAPARIN 40MG/0.4ML SYR SUBCUT SCH (08:22)
[2017-08-14 20:00] VITALS: BP 118/61
[2017-08-14 20:02] LABS: PLATELET ESTIMATE NORMAL
[2017-08-14] MEDS: ASCORBIC ACID 250 MG TABLET PO SCH (21:43)
[2017-08-15 05:54] LABS: BASOPHILS % 0.9 % (0.0-2.0); EOSINOPHILS % 5.3 % (0.0-5.0); HEMATOCRIT. 27.5 % (42.0-52.0); HEMOGLOBIN. 9.5 g/dL (14.0-18.0); LYMPHOCYTES % 10.7 % (20.0-50.0); MEAN CORPUSCULAR HEMOGLOBIN 30.5 pg (28.0-32.0); MEAN PLATELET VOLUME 7.7 fl (7.4-10.4); MONOCYTES % 13.6 % (2.0-8.0); NEUTROPHILS % 69.5 % (40.0-76.0); PLATELET 141 x1000/uL (130-400); RED BLOOD CELL COUNT 3.12 mill/uL (4.7-6.1); RED CELL DISTRIBUTION WIDTH 14.1 % (11.6-14.6)
[2017-08-15] MEDS: SODIUM CHLORIDE 0.9% INJ 3ML FLUSH IVF SCH ×3 (06:00→22:55)
[2017-08-15 06:42] LABS: CHLORIDE 104 mEq/L (98-107)
[2017-08-15 08:00] VITALS: BP 133/62
[2017-08-15] MEDS: ASCORBIC ACID 250 MG TABLET PO SCH ×2 (09:08→22:55)
[2017-08-15] MEDS: DOCUSATE SODIUM 100MG CAPSULE PO SCH (09:08)
[2017-08-15] MEDS: LOSARTAN POTASSIUM 25 MG TABLET PO SCH (09:08)
[2017-08-15] MEDS: ZINC SULFATE 220 MG ( 50 ) CAPSULE PO SCH (09:08)
[2017-08-15] MEDS: ASPIRIN 81MG EC TABLET PO SCH (09:08)
[2017-08-15] MEDS: MULTIVITAMINS,THER W-MINERALS TABLET PO SCH (09:08)
[2017-08-15] MEDS: ENOXAPARIN 40MG/0.4ML SYR SUBCUT SCH (09:10)
[2017-08-15 20:00] VITALS: BP 100/53
[2017-08-16] MEDS: SODIUM CHLORIDE 0.9% INJ 3ML FLUSH IVF SCH ×4 (07:00→22:00)
[2017-08-16 08:01] VITALS: BP 147/71
[2017-08-16] MEDS: ASCORBIC ACID 250 MG TABLET PO SCH ×2 (08:40→22:06)
[2017-08-16] MEDS: ZINC SULFATE 220 MG ( 50 ) CAPSULE PO SCH (08:40)
[2017-08-16] MEDS: ASPIRIN 81MG EC TABLET PO SCH (08:40)
[2017-08-16] MEDS: DOCUSATE SODIUM 100MG CAPSULE PO SCH ×2 (08:41→17:21)
[2017-08-16] MEDS: LOSARTAN POTASSIUM 25 MG TABLET PO SCH (08:42)
[2017-08-16] MEDS: MULTIVITAMINS,THER W-MINERALS TABLET PO SCH (08:42)
[2017-08-16] MEDS: ENOXAPARIN 40MG/0.4ML SYR SUBCUT SCH (08:43)
[2017-08-16 20:00] VITALS: BP 126/66
[2017-08-17] MEDS: LACTULOSE 20G/30ML UDC PO PRN (03:37)
[2017-08-17] MEDS: SODIUM CHLORIDE 0.9% INJ 3ML FLUSH IVF SCH ×3 (06:00→21:19)
[2017-08-17 08:00] VITALS: BP 156/67
[2017-08-17] MEDS: ZINC SULFATE 220 MG ( 50 ) CAPSULE PO SCH (08:33)
[2017-08-17] MEDS: MULTIVITAMINS,THER W-MINERALS TABLET PO SCH (08:34)
[2017-08-17] MEDS: ASCORBIC ACID 250 MG TABLET PO SCH ×2 (08:34→21:16)
[2017-08-17] MEDS: DOCUSATE SODIUM 100MG CAPSULE PO SCH ×2 (08:35→16:16)
[2017-08-17] MEDS: ASPIRIN 81MG EC TABLET PO SCH (08:35)
[2017-08-17] MEDS: LOSARTAN POTASSIUM 25 MG TABLET PO SCH (08:35)
[2017-08-17] MEDS: ENOXAPARIN 40MG/0.4ML SYR SUBCUT SCH (08:36)
[2017-08-17] MEDS: BISACODYL 10MG SUPP PR PRN (12:02)
[2017-08-17 20:00] VITALS: BP 118/62
[2017-08-18] MEDS: SODIUM CHLORIDE 0.9% INJ 3ML FLUSH IVF SCH (05:46)
[2017-08-18 07:30] VITALS: BP 154/84
[2017-08-18] MEDS: MULTIVITAMINS,THER W-MINERALS TABLET PO SCH (08:29)
[2017-08-18] MEDS: LOSARTAN POTASSIUM 25 MG TABLET PO SCH (08:29)
[2017-08-18] MEDS: ASPIRIN 81MG EC TABLET PO SCH (08:30)
[2017-08-18] MEDS: ENOXAPARIN 40MG/0.4ML SYR SUBCUT SCH (08:30)
[2017-08-18] MEDS: DOCUSATE SODIUM 100MG CAPSULE PO SCH ×2 (08:30→16:24)
[2017-08-18] MEDS: ASCORBIC ACID 250 MG TABLET PO SCH ×2 (08:30→21:16)
[2017-08-18] MEDS: ZINC SULFATE 220 MG ( 50 ) CAPSULE PO SCH (08:30)
[2017-08-18 10:05] VITALS: BP 131/61
[2017-08-18] MEDS: CLOPIDOGREL 75MG TABLET PO SCH (10:50)
[2017-08-18] MEDS ORDERED: NITROGLYCERIN OINT 1GM/INCH UDPKT TD SCH (11:00)
[2017-08-18 11:27] LABS: HEMATOCRIT. 31.3 % (42.0-52.0); HEMOGLOBIN. 10.9 g/dL (14.0-18.0); MEAN CORPUSCULAR HEMOGLOBIN 30.4 pg (28.0-32.0); MEAN CORPUSCULAR VOLUME 87.7 fL (80.0-94.0); MEAN PLATELET VOLUME 7.6 fl (7.4-10.4); PLATELET 215 x1000/uL (130-400); RED BLOOD CELL COUNT 3.57 mill/uL (4.7-6.1); RED CELL DISTRIBUTION WIDTH 14.4 % (11.6-14.6)
[2017-08-18 11:41] LABS: CHLORIDE 100 mEq/L (98-107)
[2017-08-18 11:47] VITALS: BP_SYST 101; BP_SYST 131; BP_SYST 140; BP_DIAS 61; BP_DIAS 72; BP_DIAS 82
[2017-08-18] MEDS: DEXT 5%/0.45% NACL 1000ML 1,000 ML IV SCH (15:28)
[2017-08-18 17:59] LABS: PLATELET ESTIMATE NORMAL
[2017-08-18 20:00] VITALS: BP 115/62
[2017-08-19] MEDS: DEXT 5%/0.45% NACL 1000ML 1,000 ML IV SCH ×2 (01:18→18:12)
[2017-08-19] MEDS: ACETAMINOPHEN 650MG/20.3ML UDC GT PRN (03:22)
[2017-08-19 07:31] LABS: CHLORIDE 102 mEq/L (98-107)
[2017-08-19 08:00] VITALS: BP 143/74
[2017-08-19] MEDS: ASPIRIN 81MG EC TABLET PO SCH (08:08)
[2017-08-19] MEDS: MULTIVITAMINS,THER W-MINERALS TABLET PO SCH (08:08)
[2017-08-19] MEDS: DOCUSATE SODIUM 100MG CAPSULE PO SCH ×2 (08:08→17:08)
[2017-08-19] MEDS: CLOPIDOGREL 75MG TABLET PO SCH (08:08)
[2017-08-19] MEDS: ASCORBIC ACID 250 MG TABLET PO SCH ×2 (08:08→21:37)
[2017-08-19] MEDS: ZINC SULFATE 220 MG ( 50 ) CAPSULE PO SCH (08:08)
[2017-08-19] MEDS: ENOXAPARIN 40MG/0.4ML SYR SUBCUT SCH (08:09)
[2017-08-19 20:00] VITALS: BP 135/67
[2017-08-20] MEDS: DEXT 5%/0.45% NACL 1000ML 1,000 ML IV SCH ×3 (04:57→21:32)
[2017-08-20 08:00] VITALS: BP 161/83
[2017-08-20] MEDS: ZINC SULFATE 220 MG ( 50 ) CAPSULE PO SCH (08:16)
[2017-08-20] MEDS: CLOPIDOGREL 75MG TABLET PO SCH (08:17)
[2017-08-20] MEDS: ASCORBIC ACID 250 MG TABLET PO SCH ×2 (08:17→21:33)
[2017-08-20] MEDS: DOCUSATE SODIUM 100MG CAPSULE PO SCH ×2 (08:17→16:57)
[2017-08-20] MEDS: ASPIRIN 81MG EC TABLET PO SCH (08:17)
[2017-08-20] MEDS: MULTIVITAMINS,THER W-MINERALS TABLET PO SCH (08:18)
[2017-08-20] MEDS: ENOXAPARIN 40MG/0.4ML SYR SUBCUT SCH (08:19)
[2017-08-20] MEDS: LACTULOSE 20G/30ML UDC PO PRN (16:57)
[2017-08-20] MEDS ORDERED: TAMSULOSIN HCL 0.4MG SR CAPSULE PO SCH (18:15)
[2017-08-20 20:00] VITALS: BP 126/65
[2017-08-20 23:21] LABS: CLARITY URINE CLEAR (CLEAR); COLOR URINE YELLOW (YELLOW); KETONES URINE NEGATIVE (NEGATIVE); LEUKOCYTE ESTERASE URINE NEGATIVE (NEGATIVE); NITRITE URINE NEGATIVE (NEGATIVE); OCCULT BLOOD URINE NEGATIVE (NEGATIVE); PROTEIN URINE NEGATIVE (NEGATIVE); SPECIFIC GRAVITY URINE 1.016 (1.005-1.030); UROBILINOGEN URINE 0.2 E.U./dL (0.2-1.0)
[2017-08-21] VITALS (15 sets, daily range): BP systolic 63–160; BP diastolic 38–77
[2017-08-21] MEDS: BISACODYL 10MG SUPP PR PRN (03:32)
[2017-08-21 06:42] LABS: BASOPHILS % 0.8 % (0.0-2.0); EOSINOPHILS % 4.2 % (0.0-5.0); HEMATOCRIT. 30.1 % (42.0-52.0); HEMOGLOBIN. 10.2 g/dL (14.0-18.0); LYMPHOCYTES % 10.3 % (20.0-50.0); MEAN CORPUSCULAR VOLUME 88.2 fL (80.0-94.0); MEAN PLATELET VOLUME 7.5 fl (7.4-10.4); MONOCYTES % 11.5 % (2.0-8.0); NEUTROPHILS % 73.2 % (40.0-76.0); PLATELET 220 x1000/uL (130-400); RED BLOOD CELL COUNT 3.41 mill/uL (4.7-6.1); RED CELL DISTRIBUTION WIDTH 14.6 % (11.6-14.6)
[2017-08-21 07:49] LABS: CHLORIDE 101 mEq/L (98-107)
[2017-08-21] MEDS: CLOPIDOGREL 75MG TABLET PO SCH (10:15)
[2017-08-21] MEDS: MULTIVITAMINS,THER W-MINERALS TABLET PO SCH (10:15)
[2017-08-21] MEDS: ASPIRIN 81MG EC TABLET PO SCH (10:15)
[2017-08-21] MEDS: DOCUSATE SODIUM 100MG CAPSULE PO SCH ×2 (10:16→16:05)
[2017-08-21] MEDS: ASCORBIC ACID 250 MG TABLET PO SCH ×2 (10:16→20:04)
[2017-08-21] MEDS: ZINC SULFATE 220 MG ( 50 ) CAPSULE PO SCH (10:16)
[2017-08-21] MEDS: ENOXAPARIN 40MG/0.4ML SYR SUBCUT SCH (10:17)
[2017-08-21] MEDS: DEXT 5%/0.45% NACL 1000ML 1,000 ML IV SCH (16:06)
[2017-08-22] MEDS: DEXT 5%/0.45% NACL 1000ML 1,000 ML IV SCH ×3 (02:44→18:48)
[2017-08-22 08:00] VITALS: BP 177/94
[2017-08-22] MEDS: ASCORBIC ACID 250 MG TABLET PO SCH ×2 (08:18→21:44)
[2017-08-22] MEDS: MULTIVITAMINS,THER W-MINERALS TABLET PO SCH (08:18)
[2017-08-22] MEDS: DOCUSATE SODIUM 100MG CAPSULE PO SCH ×2 (08:19→16:23)
[2017-08-22] MEDS: ASPIRIN 81MG EC TABLET PO SCH (08:19)
[2017-08-22] MEDS: CLOPIDOGREL 75MG TABLET PO SCH (08:19)
[2017-08-22] MEDS: ZINC SULFATE 220 MG ( 50 ) CAPSULE PO SCH (08:20)
[2017-08-22] MEDS: ENOXAPARIN 40MG/0.4ML SYR SUBCUT SCH (08:21)
[2017-08-22 09:00] VITALS: BP_SYST 103; BP_SYST 141; BP_SYST 143; BP_DIAS 64; BP_DIAS 79; BP_DIAS 83
[2017-08-22] MEDS ORDERED: BISACODYL 5MG TABLET PO PRN (17:30)
[2017-08-22] MEDS ORDERED: MIDODRINE HCL 5MG TABLET PO SCH (18:00)
[2017-08-22 20:00] VITALS: BP 121/73
[2017-08-23] MEDS: DEXT 5%/0.45% NACL 1000ML 1,000 ML IV SCH ×2 (03:31→15:00)
[2017-08-23] MEDS: MIDODRINE HCL 5MG TABLET PO SCH ×3 (08:00→16:22)
[2017-08-23] MEDS: ASPIRIN 81MG EC TABLET PO SCH (08:18)
[2017-08-23] MEDS: CLOPIDOGREL 75MG TABLET PO SCH (08:18)
[2017-08-23] MEDS: DOCUSATE SODIUM 100MG CAPSULE PO SCH ×2 (08:18→16:22)
[2017-08-23] MEDS: MULTIVITAMINS,THER W-MINERALS TABLET PO SCH (08:18)
[2017-08-23] MEDS: ZINC SULFATE 220 MG ( 50 ) CAPSULE PO SCH (08:18)
[2017-08-23] MEDS: ASCORBIC ACID 250 MG TABLET PO SCH ×2 (08:18→21:33)
[2017-08-23] MEDS: ENOXAPARIN 40MG/0.4ML SYR SUBCUT SCH (08:19)
[2017-08-23 08:21] VITALS: BP 157/80
[2017-08-23 16:15] VITALS: BP 137/64
[2017-08-23 20:00] VITALS: BP 144/72
[2017-08-24] MEDS: DEXT 5%/0.45% NACL 1000ML 1,000 ML IV SCH ×2 (03:20→16:31)
[2017-08-24] MEDS: MIDODRINE HCL 5MG TABLET PO SCH ×3 (03:29→16:34)
[2017-08-24] MEDS: ASCORBIC ACID 250 MG TABLET PO SCH ×2 (08:17→21:26)
[2017-08-24] MEDS: ENOXAPARIN 40MG/0.4ML SYR SUBCUT SCH (08:17)
[2017-08-24] MEDS: DOCUSATE SODIUM 100MG CAPSULE PO SCH ×2 (08:17→16:30)
[2017-08-24] MEDS: ZINC SULFATE 220 MG ( 50 ) CAPSULE PO SCH (08:17)
[2017-08-24] MEDS: MULTIVITAMINS,THER W-MINERALS TABLET PO SCH (08:17)
[2017-08-24] MEDS: ASPIRIN 81MG EC TABLET PO SCH (08:17)
[2017-08-24] MEDS: CLOPIDOGREL 75MG TABLET PO SCH (08:17)
[2017-08-24 08:20] VITALS: BP 166/82
[2017-08-24 15:35] VITALS: BP 141/71
[2017-08-24 16:30] VITALS: BP 133/68
[2017-08-24] MEDS ORDERED: IOHEXOL-300 100 ML BOTTLE ONE (17:49)
[2017-08-24 20:00] VITALS: BP 132/70
[2017-08-24] MEDS: OXYBUTYNIN CHLORIDE 5MG TABLET PO SCH (21:26)
[2017-08-24] MEDS: IPRATROPIUM/ALBUTEROL 0.5-3(2.5)MG/3ML NEB INH PRN (21:50)
[2017-08-25] VITALS (9 sets, daily range): BP systolic 94–149; BP diastolic 60–89
[2017-08-25] MEDS: MIDODRINE HCL 5MG TABLET PO SCH ×3 (00:40→16:34)
[2017-08-25] MEDS: DEXT 5%/0.45% NACL 1000ML 1,000 ML IV SCH ×2 (02:24→14:43)
[2017-08-25] MEDS: ACETAMINOPHEN 650MG/20.3ML UDC GT PRN (03:54)
[2017-08-25] MEDS: ASPIRIN 81MG EC TABLET PO SCH (09:32)
[2017-08-25] MEDS: MULTIVITAMINS,THER W-MINERALS TABLET PO SCH (09:32)
[2017-08-25] MEDS: DOCUSATE SODIUM 100MG CAPSULE PO SCH ×2 (09:33→16:32)
[2017-08-25] MEDS: CLOPIDOGREL 75MG TABLET PO SCH (09:33)
[2017-08-25] MEDS: ZINC SULFATE 220 MG ( 50 ) CAPSULE PO SCH (09:33)
[2017-08-25] MEDS: ASCORBIC ACID 250 MG TABLET PO SCH ×2 (09:33→21:42)
[2017-08-25] MEDS: OXYBUTYNIN CHLORIDE 5MG TABLET PO SCH ×2 (09:34→21:42)
[2017-08-25] MEDS: ENOXAPARIN 40MG/0.4ML SYR SUBCUT SCH (09:35)
[2017-08-26] MEDS: MIDODRINE HCL 5MG TABLET PO SCH ×3 (00:01→16:58)
[2017-08-26] MEDS: DEXT 5%/0.45% NACL 1000ML 1,000 ML IV SCH ×2 (01:27→10:57)
[2017-08-26 08:00] VITALS: BP 159/81
[2017-08-26 08:20] VITALS: BP_SYST 124; BP_SYST 125; BP_SYST 78; BP_DIAS 53; BP_DIAS 70; BP_DIAS 75
[2017-08-26] MEDS: ZINC SULFATE 220 MG ( 50 ) CAPSULE PO SCH (09:21)
[2017-08-26] MEDS: ASPIRIN 81MG EC TABLET PO SCH (09:21)
[2017-08-26] MEDS: MULTIVITAMINS,THER W-MINERALS TABLET PO SCH (09:21)
[2017-08-26] MEDS: CLOPIDOGREL 75MG TABLET PO SCH (09:21)
[2017-08-26] MEDS: DOCUSATE SODIUM 100MG CAPSULE PO SCH ×2 (09:21→16:57)
[2017-08-26] MEDS: OXYBUTYNIN CHLORIDE 5MG TABLET PO SCH ×2 (09:21→21:43)
[2017-08-26] MEDS: ENOXAPARIN 40MG/0.4ML SYR SUBCUT SCH (09:25)
[2017-08-26] MEDS: ASCORBIC ACID 250 MG TABLET PO SCH ×2 (10:45→21:43)
[2017-08-26 13:58] VITALS: BP_SYST 136; BP_SYST 150; BP_DIAS 79; BP_DIAS 83
[2017-08-26 20:00] VITALS: BP_SYST 108; BP_SYST 126; BP_SYST 130; BP_DIAS 62; BP_DIAS 64; BP_DIAS 68
[2017-08-26] MEDS: IPRATROPIUM/ALBUTEROL 0.5-3(2.5)MG/3ML NEB INH PRN (22:01)
[2017-08-27] MEDS: MIDODRINE HCL 5MG TABLET PO SCH ×3 (01:17→16:54)
[2017-08-27] MEDS: DEXT 5%/0.45% NACL 1000ML 1,000 ML IV SCH ×2 (01:19→21:38)
[2017-08-27 08:00] VITALS: BP 139/73
[2017-08-27] MEDS: OXYBUTYNIN CHLORIDE 5MG TABLET PO SCH ×2 (09:27→21:35)
[2017-08-27] MEDS: DOCUSATE SODIUM 100MG CAPSULE PO SCH ×2 (09:27→16:53)
[2017-08-27] MEDS: ENOXAPARIN 40MG/0.4ML SYR SUBCUT SCH (09:27)
[2017-08-27] MEDS: ZINC SULFATE 220 MG ( 50 ) CAPSULE PO SCH (09:27)
[2017-08-27] MEDS: MULTIVITAMINS,THER W-MINERALS TABLET PO SCH (09:27)
[2017-08-27] MEDS: ASCORBIC ACID 250 MG TABLET PO SCH ×2 (09:27→21:35)
[2017-08-27] MEDS: CLOPIDOGREL 75MG TABLET PO SCH (09:27)
[2017-08-27] MEDS: ASPIRIN 81MG EC TABLET PO SCH (09:27)
[2017-08-27 16:45] VITALS: BP 155/82
[2017-08-27 20:00] VITALS: BP_SYST 123; BP_SYST 134; BP_DIAS 78; BP_DIAS 99
[2017-08-28] MEDS: MIDODRINE HCL 5MG TABLET PO SCH ×3 (08:00→17:33)
[2017-08-28 08:14] VITALS: BP 170/89
[2017-08-28] MEDS: ASPIRIN 81MG EC TABLET PO SCH (08:30)
[2017-08-28] MEDS: ZINC SULFATE 220 MG ( 50 ) CAPSULE PO SCH (08:30)
[2017-08-28] MEDS: DOCUSATE SODIUM 100MG CAPSULE PO SCH ×2 (08:30→17:33)
[2017-08-28] MEDS: ENOXAPARIN 40MG/0.4ML SYR SUBCUT SCH (08:31)
[2017-08-28] MEDS: OXYBUTYNIN CHLORIDE 5MG TABLET PO SCH ×2 (08:31→21:11)
[2017-08-28] MEDS: MULTIVITAMINS,THER W-MINERALS TABLET PO SCH (08:31)
[2017-08-28] MEDS: ASCORBIC ACID 250 MG TABLET PO SCH ×2 (08:31→21:11)
[2017-08-28] MEDS: CLOPIDOGREL 75MG TABLET PO SCH (08:31)
[2017-08-28] MEDS: DEXT 5%/0.45% NACL 1000ML 1,000 ML IV SCH (17:33)
[2017-08-28 20:00] VITALS: BP 145/73
[2017-08-29] MEDS: MIDODRINE HCL 5MG TABLET PO SCH ×3 (00:13→16:58)
[2017-08-29] MEDS: DEXT 5%/0.45% NACL 1000ML 1,000 ML IV SCH ×2 (04:50→06:26)
[2017-08-29 07:00] VITALS: BP 158/81
[2017-08-29] MEDS: ASCORBIC ACID 250 MG TABLET PO SCH ×2 (08:35→20:39)
[2017-08-29] MEDS: ASPIRIN 81MG EC TABLET PO SCH (08:35)
[2017-08-29] MEDS: ZINC SULFATE 220 MG ( 50 ) CAPSULE PO SCH (08:35)
[2017-08-29] MEDS: OXYBUTYNIN CHLORIDE 5MG TABLET PO SCH ×2 (08:36→20:39)
[2017-08-29] MEDS: MULTIVITAMINS,THER W-MINERALS TABLET PO SCH (08:36)
[2017-08-29] MEDS: CLOPIDOGREL 75MG TABLET PO SCH (08:36)
[2017-08-29] MEDS: DOCUSATE SODIUM 100MG CAPSULE PO SCH ×2 (08:36→16:58)
[2017-08-29] MEDS: ENOXAPARIN 40MG/0.4ML SYR SUBCUT SCH (08:36)
[2017-08-29 16:57] VITALS: BP 148/81
[2017-08-29 20:00] VITALS: BP 141/80
[2017-08-30] MEDS: DEXT 5%/0.45% NACL 1000ML 1,000 ML IV SCH (03:39)
[2017-08-30] MEDS: MIDODRINE HCL 5MG TABLET PO SCH ×2 (04:05→13:06)
[2017-08-30 07:27] VITALS: BP 152/77
[2017-08-30 08:27] LABS: HEMATOCRIT 33.8 % (42.0-52.0); HEMOGLOBIN 11.5 g/dL (14.0-18.0); MEAN CORPUSCULAR HEMOGLOBIN 30.4 pg (28.0-32.0); MEAN CORPUSCULAR VOLUME 89.3 fL (80.0-94.0); PLATELET 238 x1000/uL (130-400); RED BLOOD CELL COUNT 3.78 mill/uL (4.7-6.1); RED CELL DISTRIBUTION WIDTH 15.7 % (11.6-14.6)
[2017-08-30] MEDS: ASCORBIC ACID 250 MG TABLET PO SCH (09:03)
[2017-08-30] MEDS: ZINC SULFATE 220 MG ( 50 ) CAPSULE PO SCH (09:03)
[2017-08-30] MEDS: MULTIVITAMINS,THER W-MINERALS TABLET PO SCH (09:03)
[2017-08-30] MEDS: ASPIRIN 81MG EC TABLET PO SCH (09:04)
[2017-08-30] MEDS: DOCUSATE SODIUM 100MG CAPSULE PO SCH (09:04)
[2017-08-30] MEDS: ENOXAPARIN 40MG/0.4ML SYR SUBCUT SCH (09:04)
[2017-08-30] MEDS: OXYBUTYNIN CHLORIDE 5MG TABLET PO SCH (09:04)
[2017-08-30] MEDS: CLOPIDOGREL 75MG TABLET PO SCH (09:04)
[2017-08-30 11:27] VITALS: BP_SYST 139; BP_SYST 152; BP_DIAS 77
[2017-08-30] MEDS ORDERED: ATORVASTATIN CALCIUM 10MG TABLET PO SCH (21:00)
== END 2017-08-30 15:25 | disposition home health service (06) | DRG 64 ==
PROVIDERS: ADMIT Psychiatry & Neurology Neurology; ATTEND Family Medicine
DX: I63.9 Cerebral infarction, unspecified (principal); G93.40 Encephalopathy, unspecified; I21.4 Non-ST elevation (NSTEMI) myocardial infarction; E46 Unspecified protein-calorie malnutrition; D69.6 Thrombocytopenia, unspecified; G62.9 Polyneuropathy, unspecified; E87.1 Hypo-osmolality and hyponatremia; I11.0 Hypertensive heart disease with heart failure; I50.9 Heart failure, unspecified; M62.82 Rhabdomyolysis; I27.20 Pulmonary hypertension, unspecified; R31.9 Hematuria, unspecified; D63.8 Anemia in other chronic diseases classified elsewhere; M48.00 Spinal stenosis, site unspecified; R29.810 Facial weakness; M79.609 Pain in unspecified limb; R26.9 Unspecified abnormalities of gait and mobility; I34.0 Nonrheumatic mitral (valve) insufficiency; Z79.02 Long term (current) use of antithrombotics/antiplatelets; Z79.82 Long term (current) use of aspirin; Z88.1 Allergy status to other antibiotic agents; Z88.8 Allergy status to other drugs, medicaments and biological substances; E78.5 Hyperlipidemia, unspecified; Z85.46 Personal history of malignant neoplasm of prostate; Z85.528 Personal history of other malignant neoplasm of kidney; I95.1 Orthostatic hypotension; F06.31 Mood disorder due to known physiological condition with depressive features; F01.50 Vascular dementia, unspecified severity, without behavioral disturbance, psychotic disturbance, mood disturbance, and anxiety; Z86.73 Personal history of transient ischemic attack (TIA), and cerebral infarction without residual deficits; R35.0 Frequency of micturition; R39.15 Urgency of urination; R35.1 Nocturia; N32.81 Overactive bladder; I25.2 Old myocardial infarction; Z68.22 Body mass index [BMI] 22.0-22.9, adult; M47.816 Spondylosis without myelopathy or radiculopathy, lumbar region; Z79.899 Other long term (current) drug therapy; Z88.9 Allergy status to unspecified drugs, medicaments and biological substances
CPT/HCPCS: 36415; 74178; 76770; 76857; 80048; 80053; 80061; 81003; 82962; 83735; 84153; 84484; 85025; 85027; 92523; 93005; 94640; 97110; 97112; 97116; 97162; 97166; 97530; 97535; A6261; C1893; G0515; J1650; J3490; J7620; Q9967

== ENCOUNTER 2019-03-03 12:36 | Inpatient (IN) | payer MEDICARE, OTHER ==
[~2019-03-03] VITALS: Ht 175.3 cm; Wt 64.9 kg
[~2019-03-03 12:36] MED LIST changes: +ACET-2178 PO; -ASPI-1159 PO; +ASPI-1393 PO; +ASPI325T85 PO; +CLON0.1T14 PO; +CLOP75TA4 PO; -LOSA25TA12 PO; +LOSA25TA26 PO; +LOV40 SQ; +MAGN30OR PO; +MIRT15TA PO; -NITR0.4T49 SL; +ROBITUSSIN PO
[2019-03-03 13:23] LABS: HEMATOCRIT. 31.4 % (42.0-52.0); HEMOGLOBIN. 10.5 g/dL (14.0-18.0); MEAN CORPUSCULAR HEMOGLOBIN 29.3 pg (28.0-32.0); MEAN CORPUSCULAR VOLUME 87.7 fL (80.0-94.0); MEAN PLATELET VOLUME 8.7 fl (7.4-10.4); PLATELET 143 x1000/uL (130-400); RED BLOOD CELL COUNT 3.58 mill/uL (4.7-6.1)
[2019-03-03 13:31] LABS: CHLORIDE 103 mEq/L (98-107); INR 1.2; PROTHROMBIN TIME 11.9 sec (9.6-11.0)
[2019-03-03 13:33] LABS: BG BASE EXCESS 3.8 mmol/L (-2.0-2.0); BG CARBOXYHEMOGLOBIN 0.3 % (0.5-1.5); BG DEOXYHEMOGLOBIN 0.2 % (0.0-5.0); BG FRACTION INSPIRED OXYGEN 100; BG HCO3 ACT 28.5 mmol/L (22.0-26.0); BG OXYGEN SATURATION 99.8 % (92.0-98.5); BG OXYHEMOGLOBIN 99.5 % (94.0-97.0); BG PCO2 43.5 mmHg (35.0-45.0); BG PH 7.434 (7.350-7.450); BG PO2 544.9 mmHg (75.0-100.0); BG SAMPLE SITE RIGHT RADIAL; BG VENT MODE MASK - NRB
[2019-03-03 13:37] LABS: ETHANOL BLOOD < 10 mg/dL
[2019-03-03 14:03] LABS: CLARITY URINE CLOUDY (CLEAR); COLOR URINE DARK YELLOW (YELLOW); KETONES URINE TRACE (NEGATIVE); LEUKOCYTE ESTERASE URINE 3+ (NEGATIVE); NITRITE URINE POSITIVE (NEGATIVE); OCCULT BLOOD URINE TRACE (NEGATIVE); PROTEIN URINE 1+ (NEGATIVE); SPECIFIC GRAVITY URINE 1.016 (1.005-1.030)
[2019-03-03 14:15] LABS: PLATELET ESTIMATE NORMAL
[2019-03-03 14:22] LABS: *AMPHETAMINES SCREEN URINE NEGATIVE (NEGATIVE); *BARBITURATES SCREEN URINE NEGATIVE (NEGATIVE); *BENZODIAZEPINES SCREEN URINE NEGATIVE (NEGATIVE); *COCAINE SCREEN URINE NEGATIVE (NEGATIVE); CANNABINOID URINE SCREEN NEGATIVE (NEGATIVE); METHADONE URINE SCREEN NEGATIVE (NEGATIVE); OPIATES URINE SCREEN NEGATIVE (NEGATIVE); PHENCYCLIDINE URINE SCREEN NEGATIVE (NEGATIVE)
[2019-03-03] MEDS ORDERED: CEFTRIAXONE 1 G PREMIX 50 ML IV ONE (14:30)
[2019-03-03] MEDS ORDERED: SODIUM CHLORIDE 0.9% 1000ML BAG (SEPSIS BOLUS) IV ONE (14:30)
[2019-03-03 15:27] VITALS: BP 132/72
[2019-03-03 16:00] VITALS: BP 111/59
[2019-03-03] MEDS ORDERED: LORAZEPAM 2MG/ML CPJ IV PRN (16:00)
[2019-03-03] MEDS ORDERED: ACETAMINOPHEN 650MG SUPP PR PRN (16:00)
[2019-03-03] MEDS: DEXT 5%/0.45% NACL 1000ML 1,000 ML IV SCH (16:49)
[2019-03-03] MEDS: ENOXAPARIN 40MG/0.4ML SYR SUBCUT SCH (17:02)
[2019-03-03] MEDS: LEVOFLOXACIN 500MG PREMIX 100 ML IV SCH (17:40)
[2019-03-03 18:00] VITALS: BP 131/72
[2019-03-03 20:00] VITALS: BP 116/70
[2019-03-03] MEDS ORDERED: GABA-531 PO (20:29)
[2019-03-03] MEDS ORDERED: ATOR-2 PO (20:29)
[2019-03-03] MEDS ORDERED: LOSA25TA26 PO (20:29)
[2019-03-03] MEDS ORDERED: TAMS-11 PO (20:29)
[2019-03-03 22:00] VITALS: BP 122/73
[2019-03-04] VITALS (12 sets, daily range): BP systolic 114–147; BP diastolic 64–78
[2019-03-04] MEDS: DEXT 5%/0.45% NACL 1000ML 1,000 ML IV SCH ×2 (06:01→18:00)
[2019-03-04 07:59] LABS: CHLORIDE 106 mEq/L (98-107)
[2019-03-04 08:03] LABS: BASOPHILS % 0.4 % (0.0-2.0); EOSINOPHILS % 1.5 % (0.0-5.0); HEMATOCRIT. 28.3 % (42.0-52.0); HEMOGLOBIN. 9.6 g/dL (14.0-18.0); LYMPHOCYTES % 9.5 % (20.0-50.0); MEAN CORPUSCULAR HEMOGLOBIN 29.6 pg (28.0-32.0); MEAN CORPUSCULAR VOLUME 87.3 fL (80.0-94.0); MEAN PLATELET VOLUME 8.9 fl (7.4-10.4); NEUTROPHILS % 80.6 % (40.0-76.0); PLATELET 138 x1000/uL (130-400); RED BLOOD CELL COUNT 3.24 mill/uL (4.7-6.1)
[2019-03-04] MEDS: ENOXAPARIN 40MG/0.4ML SYR SUBCUT SCH (16:26)
[2019-03-04] MEDS: LEVOFLOXACIN 500MG PREMIX 100 ML IV SCH (18:00)
[2019-03-05] VITALS (12 sets, daily range): BP systolic 143–199; BP diastolic 73–118
[2019-03-05] MEDS: DEXT 5%/0.45% NACL 1000ML 1,000 ML IV SCH ×2 (06:43→21:21)
[2019-03-05 06:46] LABS: BASOPHILS % 0.4 % (0.0-2.0); HEMATOCRIT. 27.8 % (42.0-52.0); HEMOGLOBIN. 9.4 g/dL (14.0-18.0); LYMPHOCYTES % 10.1 % (20.0-50.0); MEAN CORPUSCULAR HEMOGLOBIN 29.5 pg (28.0-32.0); MEAN CORPUSCULAR VOLUME 86.9 fL (80.0-94.0); MEAN PLATELET VOLUME 9.4 fl (7.4-10.4); MONOCYTES % 10.6 % (2.0-8.0); NEUTROPHILS % 75.9 % (40.0-76.0); PLATELET 140 x1000/uL (130-400); RED BLOOD CELL COUNT 3.19 mill/uL (4.7-6.1); RED CELL DISTRIBUTION WIDTH 16.9 % (11.6-14.6)
[2019-03-05 07:06] LABS: CHLORIDE 105 mEq/L (98-107)
[2019-03-05] MEDS ORDERED: GENTAMICIN 120MG PREMIX 100 ML IV SCH (13:00)
[2019-03-05] MEDS: TAMSULOSIN HCL 0.4MG SR CAPSULE PO SCH (13:50)
[2019-03-05] MEDS: CLOPIDOGREL 75MG TABLET PO SCH (13:50)
[2019-03-05] MEDS: ENOXAPARIN 40MG/0.4ML SYR SUBCUT SCH (17:06)
[2019-03-05] MEDS: LEVOFLOXACIN 500MG PREMIX 100 ML IV SCH (17:07)
[2019-03-05] MEDS: MIRTAZAPINE 15MG TABLET PO SCH (21:21)
[2019-03-06] VITALS (13 sets, daily range): BP systolic 113–170; BP diastolic 57–101
[2019-03-06] MEDS ORDERED: HYDRALAZINE 20MG/ML VIAL IV PRN
[2019-03-06] MEDS ORDERED: GENTAMICIN SULFATE 60 MG in SODIUM CHLORIDE 0.9% 50 ML IV SCH (03:00)
[2019-03-06 07:56] LABS: VITAMIN B12 SERUM 1140 pg/mL (211-911)
[2019-03-06 09:45] LABS: BASOPHILS % 0.5 % (0.0-2.0); EOSINOPHILS % 2.5 % (0.0-5.0); HEMATOCRIT. 35.2 % (42.0-52.0); HEMOGLOBIN. 11.7 g/dL (14.0-18.0); MEAN CORPUSCULAR HEMOGLOBIN 29.7 pg (28.0-32.0); MEAN CORPUSCULAR VOLUME 89.5 fL (80.0-94.0); MEAN PLATELET VOLUME 10.3 fl (7.4-10.4); MONOCYTES % 9.8 % (2.0-8.0); NEUTROPHILS % 74.2 % (40.0-76.0); PLATELET 87 x1000/uL (130-400); RED BLOOD CELL COUNT 3.93 mill/uL (4.7-6.1); RED CELL DISTRIBUTION WIDTH 17.4 % (11.6-14.6)
[2019-03-06 09:50] LABS: CHLORIDE 105 mEq/L (98-107)
[2019-03-06] MEDS: CLOPIDOGREL 75MG TABLET PO SCH (10:17)
[2019-03-06] MEDS: TAMSULOSIN HCL 0.4MG SR CAPSULE PO SCH (10:17)
[2019-03-06] MEDS: AMPICILLIN 1,000 MG in SODIUM CHLORIDE 0.9% 50 ML IV SCH ×2 (16:32→22:52)
[2019-03-06] MEDS: DEXT 5%/0.45% NACL 1000ML 1,000 ML IV SCH (16:33)
[2019-03-06] MEDS: MIRTAZAPINE 15MG TABLET PO SCH (20:51)
[2019-03-07] VITALS (17 sets, daily range): BP systolic 86–134; BP diastolic 50–99
[2019-03-07] MEDS: DEXT 5%/0.45% NACL 1000ML 1,000 ML IV SCH ×2 (05:22→12:51)
[2019-03-07] MEDS: AMPICILLIN 1,000 MG in SODIUM CHLORIDE 0.9% 50 ML IV SCH ×4 (05:22→21:12)
[2019-03-07] MEDS: CLOPIDOGREL 75MG TABLET PO SCH (09:09)
[2019-03-07] MEDS: TAMSULOSIN HCL 0.4MG SR CAPSULE PO SCH (09:13)
[2019-03-07] MEDS: MIRTAZAPINE 15MG TABLET PO SCH (21:12)
[2019-03-08] VITALS (12 sets, daily range): BP systolic 103–151; BP diastolic 54–91
[2019-03-08] MEDS: DEXT 5%/0.45% NACL 1000ML 1,000 ML IV SCH ×2 (02:32→15:14)
[2019-03-08] MEDS: AMPICILLIN 1,000 MG in SODIUM CHLORIDE 0.9% 50 ML IV SCH ×4 (02:33→21:31)
[2019-03-08] MEDS: TAMSULOSIN HCL 0.4MG SR CAPSULE PO SCH (10:05)
[2019-03-08] MEDS: CLOPIDOGREL 75MG TABLET PO SCH (10:05)
[2019-03-08 12:23] LABS: CHLORIDE 104 mEq/L (98-107)
[2019-03-08 12:29] LABS: BASOPHILS % 0.5 % (0.0-2.0); EOSINOPHILS % 4.2 % (0.0-5.0); HEMATOCRIT. 28.4 % (42.0-52.0); HEMOGLOBIN. 9.6 g/dL (14.0-18.0); LYMPHOCYTES % 11.7 % (20.0-50.0); MEAN CORPUSCULAR HEMOGLOBIN 29.3 pg (28.0-32.0); MEAN CORPUSCULAR VOLUME 86.9 fL (80.0-94.0); MEAN PLATELET VOLUME 8.4 fl (7.4-10.4); MONOCYTES % 12.1 % (2.0-8.0); NEUTROPHILS % 71.5 % (40.0-76.0); PLATELET 177 x1000/uL (130-400); RED BLOOD CELL COUNT 3.26 mill/uL (4.7-6.1); RED CELL DISTRIBUTION WIDTH 17.2 % (11.6-14.6)
[2019-03-08] MEDS: MIRTAZAPINE 15MG TABLET PO SCH (21:31)
[2019-03-09] VITALS (12 sets, daily range): BP systolic 111–167; BP diastolic 71–94
[2019-03-09] MEDS: AMPICILLIN 1,000 MG in SODIUM CHLORIDE 0.9% 50 ML IV SCH ×4 (03:06→21:04)
[2019-03-09] MEDS: TAMSULOSIN HCL 0.4MG SR CAPSULE PO SCH (08:26)
[2019-03-09] MEDS: CLOPIDOGREL 75MG TABLET PO SCH (08:26)
[2019-03-09] MEDS: DEXT 5%/0.45% NACL 1000ML 1,000 ML IV SCH ×2 (08:27→18:29)
[2019-03-09] MEDS ORDERED: MAGNESIUM HYDROXIDE 400MG/5ML 30ML UDC PO PRN (16:00)
[2019-03-09] MEDS: MIRTAZAPINE 15MG TABLET PO SCH (21:05)
[2019-03-10] VITALS (12 sets, daily range): BP systolic 82–150; BP diastolic 53–81
[2019-03-10] MEDS: AMPICILLIN 1,000 MG in SODIUM CHLORIDE 0.9% 50 ML IV SCH ×2 (04:28→08:59)
[2019-03-10] MEDS: DEXT 5%/0.45% NACL 1000ML 1,000 ML IV SCH ×2 (08:59→20:52)
[2019-03-10] MEDS: CLOPIDOGREL 75MG TABLET PO SCH (08:59)
[2019-03-10] MEDS: TAMSULOSIN HCL 0.4MG SR CAPSULE PO SCH (09:00)
[2019-03-10] MEDS: MIRTAZAPINE 15MG TABLET PO SCH (20:52)
[2019-03-11] VITALS (12 sets, daily range): BP systolic 98–156; BP diastolic 43–96
[2019-03-11] MEDS: CLOPIDOGREL 75MG TABLET PO SCH (09:13)
[2019-03-11] MEDS: TAMSULOSIN HCL 0.4MG SR CAPSULE PO SCH (09:14)
[2019-03-11] MEDS: DEXT 5%/0.45% NACL 1000ML 1,000 ML IV SCH ×2 (12:59→22:09)
[2019-03-11] MEDS: MIRTAZAPINE 15MG TABLET PO SCH (22:09)
[2019-03-12] VITALS (11 sets, daily range): BP systolic 112–157; BP diastolic 59–94
[2019-03-12 06:48] LABS: BASOPHILS % 0.4 % (0.0-2.0); EOSINOPHILS % 2.6 % (0.0-5.0); HEMATOCRIT. 26.5 % (42.0-52.0); HEMOGLOBIN. 9.2 g/dL (14.0-18.0); LYMPHOCYTES % 13.2 % (20.0-50.0); MEAN CORPUSCULAR HEMOGLOBIN 29.8 pg (28.0-32.0); MEAN CORPUSCULAR VOLUME 86.3 fL (80.0-94.0); MEAN PLATELET VOLUME 8.3 fl (7.4-10.4); MONOCYTES % 12.8 % (2.0-8.0); PLATELET 214 x1000/uL (130-400); RED BLOOD CELL COUNT 3.07 mill/uL (4.7-6.1); RED CELL DISTRIBUTION WIDTH 16.9 % (11.6-14.6)
[2019-03-12 08:35] LABS: CHLORIDE 102 mEq/L (98-107)
[2019-03-12] MEDS: CLOPIDOGREL 75MG TABLET PO SCH (09:14)
[2019-03-12] MEDS: TAMSULOSIN HCL 0.4MG SR CAPSULE PO SCH (09:14)
[2019-03-12] MEDS: DEXT 5%/0.45% NACL 1000ML 1,000 ML IV SCH (13:43)
[2019-03-12] MEDS: MIRTAZAPINE 15MG TABLET PO SCH (21:03)
[2019-03-13] VITALS (12 sets, daily range): BP systolic 109–167; BP diastolic 59–93
[2019-03-13] MEDS: ONDANSETRON HCL 4MG/2ML INJ IV PRN (03:22)
[2019-03-13] MEDS: DEXT 5%/0.45% NACL 1000ML 1,000 ML IV SCH ×2 (04:00→17:41)
[2019-03-13] MEDS: CLOPIDOGREL 75MG TABLET PO SCH (09:00)
[2019-03-13] MEDS: LACTULOSE 20G/30ML UDC PO SCH ×2 (11:11→17:41)
[2019-03-13] MEDS: TAMSULOSIN HCL 0.4MG SR CAPSULE PO SCH (11:12)
[2019-03-13 13:00] LABS: HEMATOCRIT 30.6 % (42.0-52.0); HEMOGLOBIN 10.3 g/dL (14.0-18.0); MEAN CORPUSCULAR HEMOGLOBIN 29.4 pg (28.0-32.0); MEAN CORPUSCULAR VOLUME 87.4 fL (80.0-94.0); PLATELET 224 x1000/uL (130-400); RED CELL DISTRIBUTION WIDTH 16.7 % (11.6-14.6)
[2019-03-13] MEDS: MIRTAZAPINE 15MG TABLET PO SCH (21:08)
[2019-03-14] VITALS (12 sets, daily range): BP systolic 88–167; BP diastolic 49–88
[2019-03-14] MEDS: ONDANSETRON HCL 4MG/2ML INJ IV PRN (00:40)
[2019-03-14] MEDS: DEXT 5%/0.45% NACL 1000ML 1,000 ML IV SCH ×2 (04:04→17:52)
[2019-03-14] MEDS: LACTULOSE 20G/30ML UDC PO SCH ×2 (08:47→17:51)
[2019-03-14] MEDS: TAMSULOSIN HCL 0.4MG SR CAPSULE PO SCH (09:00)
[2019-03-14 10:55] LABS: BASOPHILS % 0.5 % (0.0-2.0); EOSINOPHILS % 2.7 % (0.0-5.0); HEMATOCRIT. 29.2 % (42.0-52.0); HEMOGLOBIN. 9.8 g/dL (14.0-18.0); LYMPHOCYTES % 10.1 % (20.0-50.0); MEAN CORPUSCULAR HEMOGLOBIN 29.4 pg (28.0-32.0); MEAN CORPUSCULAR VOLUME 87.5 fL (80.0-94.0); MEAN PLATELET VOLUME 8.7 fl (7.4-10.4); MONOCYTES % 9.2 % (2.0-8.0); NEUTROPHILS % 77.5 % (40.0-76.0); PLATELET 205 x1000/uL (130-400); RED BLOOD CELL COUNT 3.34 mill/uL (4.7-6.1); RED CELL DISTRIBUTION WIDTH 16.9 % (11.6-14.6)
[2019-03-14 11:06] LABS: CHLORIDE 101 mEq/L (98-107)
[2019-03-14] MEDS: MIDODRINE HCL 2.5MG TABLET PO SCH ×2 (11:43→20:00)
[2019-03-14] MEDS ORDERED: SODIUM CHLORIDE 0.9% 500 ML IV ONE (11:45)
[2019-03-14] MEDS: MIRTAZAPINE 15MG TABLET PO SCH (21:34)
[2019-03-15] VITALS (13 sets, daily range): BP systolic 102–165; BP diastolic 70–105
[2019-03-15] MEDS: MIDODRINE HCL 2.5MG TABLET PO SCH (04:00)
[2019-03-15] MEDS: TAMSULOSIN HCL 0.4MG SR CAPSULE PO SCH (08:38)
[2019-03-15] MEDS: LACTULOSE 20G/30ML UDC PO SCH ×2 (08:38→17:11)
[2019-03-15] MEDS ORDERED: DILTIAZEM HCL 5MG/ML 5ML VIAL IV ONE (17:45)
[2019-03-15] MEDS: MIRTAZAPINE 15MG TABLET PO SCH (21:47)
[2019-03-16] VITALS (12 sets, daily range): BP systolic 108–162; BP diastolic 59–99
[2019-03-16] MEDS: LACTULOSE 20G/30ML UDC PO SCH ×2 (08:42→17:51)
[2019-03-16] MEDS: TAMSULOSIN HCL 0.4MG SR CAPSULE PO SCH (08:43)
[2019-03-16 13:33] LABS: CHLORIDE 106 mEq/L (98-107)
[2019-03-16] MEDS: MIRTAZAPINE 15MG TABLET PO SCH (22:06)
[2019-03-17] VITALS (11 sets, daily range): BP systolic 92–142; BP diastolic 52–91
[2019-03-17 07:04] LABS: INR 1.1; PARTIAL THROMBOPLASTIN TIME 27.1 sec (23.4-31.0); PROTHROMBIN TIME 11.2 sec (9.6-11.0)
[2019-03-17 08:10] LABS: HEMATOCRIT 29.7 % (42.0-52.0); HEMOGLOBIN 10.1 g/dL (14.0-18.0); MEAN CORPUSCULAR HEMOGLOBIN 29.6 pg (28.0-32.0); MEAN CORPUSCULAR VOLUME 87.1 fL (80.0-94.0); PLATELET 202 x1000/uL (130-400); RED CELL DISTRIBUTION WIDTH 17.1 % (11.6-14.6)
[2019-03-17 08:20] LABS: CHLORIDE 104 mEq/L (98-107)
[2019-03-17] MEDS: TAMSULOSIN HCL 0.4MG SR CAPSULE PO SCH (09:00)
[2019-03-17] MEDS: LACTULOSE 20G/30ML UDC PO SCH ×2 (09:00→17:54)
[2019-03-17] MEDS ORDERED: CEFAZOLIN SODIUM 1000MG/VIAL IM ONE (10:15)
[2019-03-17] MEDS ORDERED: CEFAZOLIN 1000MG PREMIX 50 ML IV SCH (10:15)
[2019-03-17 10:55] LABS: T4 FREE 1.19 ng/dL (0.76-1.46)
[2019-03-17] MEDS ORDERED: SIMETHICONE 40 MG/0.6 ML 30ML ONE (11:20)
[2019-03-17] MEDS ORDERED: FENTANYL CITRATE/PF 50MCG/ML 2ML VIAL ONE (11:20)
[2019-03-17] MEDS ORDERED: MIDAZOLAM HCL 5 MG/5 ML VIAL ONE (11:20)
[2019-03-17] MEDS ORDERED: MIDAZOLAM HCL 2 MG/2 ML VIAL IV PRN (11:25)
[2019-03-17] MEDS ORDERED: FENTANYL CITRATE/PF 50MCG/ML 2ML VIAL IV PRN (11:26)
[2019-03-17] MEDS ORDERED: BACTERIOSTATIC SODIUM CHLORIDE 0.9% 30ML VIAL IJ ONE (14:35)
[2019-03-17 17:11] LABS: CREATINE KINASE 36 IU/L (39-308)
[2019-03-17 17:12] LABS: CREATINE KINASE MB FRACTION 1.1 ng/mL (0.5-3.6)
[2019-03-17] MEDS ORDERED: SODIUM CHLORIDE 0.9% 500 ML IV NR (21:00)
[2019-03-17] MEDS: MIRTAZAPINE 15MG TABLET PO SCH (22:11)
[2019-03-17] MEDS: METOPROLOL TARTRATE 25MG TABLET PO SCH (23:21)
[2019-03-18] VITALS (21 sets, daily range): BP systolic 93–143; BP diastolic 48–82
[2019-03-18 00:10] LABS: CREATINE KINASE 60 IU/L (39-308)
[2019-03-18 00:11] LABS: CREATINE KINASE MB FRACTION < 1.0 ng/mL (0.5-3.6)
[2019-03-18 07:39] LABS: CREATINE KINASE 27 IU/L (39-308)
[2019-03-18 07:41] LABS: CREATINE KINASE MB FRACTION < 1.0 ng/mL (0.5-3.6)
[2019-03-18] MEDS: METOPROLOL TARTRATE 25MG TABLET PO SCH ×2 (09:00→21:52)
[2019-03-18] MEDS: LACTULOSE 20G/30ML UDC PO SCH ×2 (09:44→17:45)
[2019-03-18] MEDS: TAMSULOSIN HCL 0.4MG SR CAPSULE PO SCH (09:45)
[2019-03-18] MEDS ORDERED: LACT10SO7 MT ×2 (16:05→16:08)
[2019-03-18] MEDS ORDERED: LOPHC2 GT (16:06)
[2019-03-18] MEDS ORDERED: MIRT15TA GT (16:08)
[2019-03-18] MEDS: MIRTAZAPINE 15MG TABLET PO SCH (21:52)
[2019-03-19] VITALS (12 sets, daily range): BP systolic 94–153; BP diastolic 51–97
[2019-03-19] MEDS: TAMSULOSIN HCL 0.4MG SR CAPSULE PO SCH (09:46)
[2019-03-19] MEDS: METOPROLOL TARTRATE 25MG TABLET PO SCH ×2 (09:46→21:32)
[2019-03-19] MEDS: LACTULOSE 20G/30ML UDC PO SCH ×2 (10:16→17:52)
[2019-03-19] MEDS: MIRTAZAPINE 15MG TABLET PO SCH (21:31)
[2019-03-20] VITALS (12 sets, daily range): BP systolic 17–161; BP diastolic 58–100
[2019-03-20] MEDS: LACTULOSE 20G/30ML UDC PO SCH ×2 (09:03→16:50)
[2019-03-20] MEDS: CLOPIDOGREL 75MG TABLET PO SCH (09:04)
[2019-03-20] MEDS: TAMSULOSIN HCL 0.4MG SR CAPSULE PO SCH (09:04)
[2019-03-20] MEDS: METOPROLOL TARTRATE 25MG TABLET PO SCH ×2 (09:04→20:50)
[2019-03-20] MEDS: MIRTAZAPINE 15MG TABLET PO SCH (20:49)
[2019-03-21] VITALS (10 sets, daily range): BP systolic 115–168; BP diastolic 62–93
[2019-03-21] MEDS: CLOPIDOGREL 75MG TABLET PO SCH (08:56)
[2019-03-21] MEDS: TAMSULOSIN HCL 0.4MG SR CAPSULE PO SCH (08:56)
[2019-03-21] MEDS: METOPROLOL TARTRATE 25MG TABLET PO SCH ×2 (08:56→20:45)
[2019-03-21] MEDS: LACTULOSE 20G/30ML UDC PO SCH ×2 (08:57→17:15)
[2019-03-21] MEDS: MIRTAZAPINE 15MG TABLET PO SCH (20:45)
[2019-03-22] VITALS (7 sets, daily range): BP systolic 102–152; BP diastolic 51–83
[2019-03-22] MEDS: CLOPIDOGREL 75MG TABLET PO SCH (10:38)
[2019-03-22] MEDS: METOPROLOL TARTRATE 25MG TABLET PO SCH ×2 (10:38→20:38)
[2019-03-22] MEDS: LACTULOSE 20G/30ML UDC PO SCH ×2 (10:38→18:13)
[2019-03-22] MEDS: TAMSULOSIN HCL 0.4MG SR CAPSULE PO SCH (10:38)
[2019-03-22] MEDS: MIRTAZAPINE 15MG TABLET PO SCH (20:38)
[2019-03-23] VITALS: BP 117/68
[2019-03-23 02:00] VITALS: BP 136/80
[2019-03-23 04:00] VITALS: BP 152/87
[2019-03-23 08:00] VITALS: BP 136/86
[2019-03-23] MEDS: LACTULOSE 20G/30ML UDC PO SCH (09:02)
[2019-03-23] MEDS: TAMSULOSIN HCL 0.4MG SR CAPSULE PO SCH (09:05)
[2019-03-23] MEDS: METOPROLOL TARTRATE 25MG TABLET PO SCH (09:06)
[2019-03-23] MEDS: CLOPIDOGREL 75MG TABLET PO SCH (09:06)
[2019-03-23 12:00] VITALS: BP 130/67
[2019-03-23] MEDS ORDERED: IOHEXOL-300 100 ML BOTTLE ONE (15:22)
== END 2019-03-23 15:21 | disposition home or self-care (01) | DRG 871 ==
LOC: ER 12:36 → 5EST 14:50 → ENRESERV 14:57 → 5EST 15:51
PROVIDERS: ADMIT Hospitalist; ATTEND Hospitalist
PROC: 0DH63UZ Insertion of Feeding Device into Stomach, Percutaneous Approach (ICD-10-PCS; principal; 2019-03-17)
DX: A41.51 Sepsis due to Escherichia coli [E. coli] (principal); E43 Unspecified severe protein-calorie malnutrition; G93.41 Metabolic encephalopathy; N39.0 Urinary tract infection, site not specified; I47.1 Supraventricular tachycardia; D63.8 Anemia in other chronic diseases classified elsewhere; E86.0 Dehydration; I10 Essential (primary) hypertension; R13.10 Dysphagia, unspecified; R65.20 Severe sepsis without septic shock; R47.02 Dysphasia; Z88.8 Allergy status to other drugs, medicaments and biological substances; Z68.21 Body mass index [BMI] 21.0-21.9, adult; D53.9 Nutritional anemia, unspecified; I49.3 Ventricular premature depolarization; I69.391 Dysphagia following cerebral infarction; K29.60 Other gastritis without bleeding; R62.7 Adult failure to thrive; Z78.1 Physical restraint status; Z82.49 Family history of ischemic heart disease and other diseases of the circulatory system; Z87.01 Personal history of pneumonia (recurrent); Z79.82 Long term (current) use of aspirin
CPT/HCPCS: 36415; 36600; 71045; 80048; 80061; 80305; 80307; 80320; 80329; 81003; 82140; 82375; 82550; 82553; 82607; 82805; 82962; 83036; 83605; 83735; 83880; 84439; 84443; 84484; 85027; 87077; 87186; 92610; 93005; 93306; 93970; 97110; 97162; 97166; 97530; 99291; A6261; J0290; J0360; J0690; J0696; J1580; J1650; J1956; J2060; J2250; J2405; J3010; J3490; J7030; J7040; Q9967; A4315; G0480